=== PATIENT | female | born 1975 | race Caucasian/White ===

== ENCOUNTER 2023-03-15 09:50 | Emergency (ER) | payer OTHER, SELFPAY ==
[2023-03-15 10:06] VITALS: BP 152/101; PULSE 72; RESP 16; TEMP 36; O2SAT 97; BMI 31.6
--- NOTE | 2023-03-15 11:10 | ED_ITS ---
HPI - Skin/Abscess/Foreign Bdy General Date Seen: 03/15/23 Chief complaint: Skin/Abscess/Foreign Body Stated complaint: Lump on L shoulder blade, pain down legs Time Seen by Provider: 03/15/23 10:08 Source: patient Mode of arrival: ambulatory Limitations: no limitations History of Present Illness HPI narrative: Patient is a daphne 47-year-old female presents here for evaluation of a cyst is been going on her left shoulder, she had a before but it has been getting more painful over the last 3 weeks, she tried calling her clinic but they could get her in. And presented here. She has had no fevers or chills or swelling. She went fishing over the week and was extremely painful for this. There is a little bit of not pain that goes down her left leg and she is wondering if it is from the cyst. She reports that she is not squeezing the cyst. Tetanus up to date: yes Related Data Home Medications Medication Instructions Recorded Confirmed albuterol sulfate 90 mcg/actuation 1 - 2 puff inhalation Q4H PRN 03/15/23 03/15/23 aerosol inhaler wheezing fluoxetine 40 mg capsule 40 mg PO QAM 03/15/23 03/15/23 gabapentin 300 mg capsule 300 mg PO 3XD 03/15/23 03/15/23 lisinopril 20 mg tablet 20 mg PO DAILY 03/15/23 03/15/23 Previous Rx's Medication Instructions Recorded amoxicillin 875 mg-potassium 1 tab PO BID #14 tabs 03/15/23 clavulanate 125 mg tablet Allergies Allergy/AdvReac Type Severity Reaction Status Date / Time No Known Drug Allergies Allergy Verified 03/15/23 10:09 Review of Systems Status of ROS: Reports: 6 or more systems reviewed and unremarkable except as noted in History and below [facility] Social History Smoking Status: Never smoker Do you use any of these nicotine containing products: None Second hand tobacco smoke exposure: No How often do you have a drink containing alcohol: monthly or less AUDIT-C Alcohol total score: 1 Non-prescribed substance use: denies use service: No Exam Narrative: Exam Narrative: On examination just lateral to her left scapular blade. There is an area that is approximately 3 x 3 in, red, elevated, consistent with a cyst. The maybe just slight overlying redness. There is no pointing area to it, ultrasound is used to show assist of approximately 2 x 2 cm circular, with no internal evidence of Doppler flow. I discussed with her that this is likely an infected sebaceous cyst, I discussed with her that we should open it up and drain it, I would expected come out piecemeal fashion and not nicely in 1 given the rupture. It is just lateral and inferior to her tattoo, and there may be a scar. She was comfortable with this 1% lidocaine with epinephrine x7 mL was infiltrated over a. This is, this resulted in adequate anesthesia, a 1 inch incision was done. I was able to bring her approximately 10 mL of pus, along with the cyst itself piecemeal fashion. It was packed with approximately 10 in of iodoform quarter-inch gauze, next I did speak to Dr. Sanon her surgeon. She will see her tomorrow in clinic to repack the area. And assess my work. We will put her on some antibiotics she will take Tylenol ibuprofen for the discomfort, and return here if any further problems. Const: Vital Signs, click to edit/add: Vital Signs - 24 hr 03/15/23 10:06 Temperature 96.8 F L Pulse Rate [Pulse Oximeter] 72 Respiratory Rate 16 Blood Pressure [Ri ght Upper Arm] 152/101 H Pulse Oximetry 97 Oxygen Delivery Me thod Room Air Documenting provider has reviewed patient's vital signs: yes Course Vital Signs Vital signs: Initial Vital Signs Temperature 96.8 F L 03/15/23 10:06 Temperature Source Temporal Artery Scan 03/15/23 10:06 Pulse Rate 72 03/15/23 10:06 Pulse Rhythm Regular 03/15/23 10:06 Respiratory Rate 16 03/15/23 10:06 Blood Pressure 152/101 H 03/15/23 10:06 Blood Pressure Mean 118 H 03/15/23 10:06 Blood Pressure Position Sitting 03/15/23 10:06 Pulse Oximetry 97 03/15/23 10:06 Oxygen Delivery Method Room Air 03/15/23 10:06 Vital Signs Temperature 96.8 F L 03/15/23 10:06 Pulse Rate 72 03/15/23 10:06 Respiratory Rate 16 03/15/23 10:06 Blood Pressure 152/101 H 03/15/23 10:06 Pulse Oximetry 97 03/15/23 10:06 Oxygen Delivery Method Room Air 03/15/23 10:06 Temperature 96.8 F L 03/15/23 10:06 Pulse Rate 72 03/15/23 10:06 Respiratory Rate 16 03/15/23 10:06 Blood Pressure 152/101 H 03/15/23 10:06 Pulse Oximetry 97 03/15/23 10:06 Oxygen Delivery Method Room Air 03/15/23 10:06 MDM - Skin/Abscess/Foreign Bdy Differential Diagnosis Differential diagnosis: Likely abscess of skin or subcutaneous tissue, dermatophytosis, urticaria, herpes zoster, cellulitis, insect bites, impetigo and contact dermatitis Medical Records Attestation: I reviewed the patient's medical records. Discharge Plan Discharge Clinical Impression: Abscess of skin or subcutaneous tissue Patient Disposition: Home w/ Parent or Adult Condition: Stable Instructions: Abscess (ED), Abscess Follow-up (ED), Abscess Incision and Drainage (DC) Additional Instructions: Home rest pull approximately 1-2 inches of the packing out per day. Antibiotics, showering should be encouraged, but swimming or immersing herself in water not. I left a message with the surgeon, we will try to get her appointment otherwise I will call and make sure that you have follow-up with [facility]. Return if increasing pain fevers chills or other issues. Activities okay. She will need to cover up where the abscess is Activity Level: Light activity Prescriptions: New amoxicillin-pot clavulanate 875-125 mg tablet 1 tab PO BID Qty: 14 0RF No Action fluoxetine 40 mg capsule 40 mg PO QAM lisinopril 20 mg tablet 20 mg PO DAILY gabapentin 300 mg capsule 300 mg PO 3XD albuterol sulfate 90 mcg/actuation HFA aerosol inhaler 1 - 2 puff INHALATION Q4H PRN (Reason: wheezing) Follow Up/Referrals: Malia Randall MD [Primary Care Provider] - Stand Alone Forms: [employer] Info Instructions
== END 2023-03-15 11:33 | disposition home or self-care (01) ==
PROVIDERS: Emergency Provider Family Medicine; PCP Family Medicine
DX: L02.414 Cutaneous abscess of left upper limb (principal)
CPT/HCPCS: 10160; 99283